=== PATIENT | female | born 1980 | race Hispanic/Latino ===

== ENCOUNTER 2018-12-08 17:17 | Inpatient (IN) | payer BC ==
--- OUTSIDE RECORDS SUMMARY | 2018-12-08 17:21 | XMS REPORT ---
:1980 [facility] Address [address] [place] [address] Dr. Robert [address] [place] [id number] Care Team Providers Name Role Phone Unavailable Unavailable Unavailable Problems This patient has no known problems. Allergies, Adverse Reactions, Alerts This patient has no known allergies or adverse reactions. Medications This patient has no known medications.
[2018-12-08] MEDS ORDERED: Ringers Lactate 1,000 ML IV PRN (18:43)
[2018-12-08] MEDS ORDERED: NA CIT/CITRIC AC 30 ML ORAL UDC PO ONE (18:46)
[2018-12-08] MEDS ORDERED: Ringers Lactate 1,000 ML IV SCH (19:00)
[2018-12-08] MEDS ORDERED: METOCLOPRAMIDE 10 MG/2mL INJ IV SCH (19:00)
[2018-12-08] MEDS ORDERED: CEFAZOLIN/SWI 2gm 2 GM/20 ML SYR IVP SCH ×2 (19:00→19:15)
--- NOTE | 2018-12-08 19:03 | P.PN ---
Date of Service: 12/08/18 Pt in prodromal labor, will proceede with .
[2018-12-08 19:21] LABS: RPR Titer ND
[2018-12-08] MEDS ORDERED: CARBOPROST TROME 250 MCG/ML IM ONE (19:21)
[2018-12-08] MEDS ORDERED: METHYLERGONOVINE 0.2MG/ML AMP IM ONE (19:21)
[2018-12-08] MEDS ORDERED: FAMOTIDINE 20 MG/2 ML VIAL IV ONE (19:21)
[2018-12-08 19:25] LABS: Absolute Lymphocytes (CBC) 1.2 K/uL (0.7-4.9); Absolute Monocytes 0.7 K/uL (0.1-1.3); Absolute Neutrophil 6.3 K/uL (1.8-8.0); Basophils % 0.4 % (0-1.3); Eosinophils % 0.7 % (0-4.4); Hematocrit 35.2 % (36.0-45.0); MPV 8.2 fL (7.6-11.3); RBC Red Blood Cell Count 3.71 M/uL (3.86-4.86)
[2018-12-08 19:26] VITALS: BMI 27.3
[2018-12-08 19:33] LABS: Urine Appearance CLEAR; Urine Bilirubin NEGATIVE (NEG); Urine Blood 1+ (NEG); Urine Color YELLOW; Urine Glucose NEGATIVE (NEG); Urine Microscopic Reflex ORDER UMIC; Urine Protein NEGATIVE (NEG); Urine Specific Gravity 1.015 (1.005-1.030); Urine Urobilinogen 0.2 mg/dL (0.2-1.0); Urine pH 6.5 (5.0-7.0)
[2018-12-08] MEDS ORDERED: MORPHINE SULFATE/PF 1 MG/ML (10 ML AMP) ONE (19:37)
[2018-12-08] MEDS ORDERED: OXYTOCIN 10 UNIT/ML ML IV ONE (19:43)
[2018-12-08] MEDS ORDERED: ONDANSETRON 4 MG/2 ML VIAL ONE (19:43)
[2018-12-08 20:11] LABS: Urine Bacteria <20 /HPF (<20)
[2018-12-08 20:12] LABS: Urine Culture Reflex Order NOT NEEDED
[2018-12-08] MEDS ORDERED: MIDAZOLAM HCL 2 MG/2 ML INJ ONE (20:49)
[2018-12-08] MEDS ORDERED: FENTANYL CITR 250 MCG/5 ML ONE (20:58)
[2018-12-08] MEDS ORDERED: METHYLERGONOVINE 0.2MG/ML AMP IM PRN (21:30)
[2018-12-08] MEDS ORDERED: CARBOPROST TROME 250 MCG/ML IM PRN (21:30)
[2018-12-08] MEDS ORDERED: ONDANSETRON 4 MG (ODT) TAB PO PRN (21:30)
[2018-12-08] MEDS ORDERED: METHYLERGONOVINE 0.2 MG TAB PO PRN (21:30)
[2018-12-08] MEDS ORDERED: KETOROLAC 30 MG/ML INJ IV ONE (21:31)
--- NOTE | 2018-12-08 21:34 | P.BOP ---
Preoperative diagnosis: 38+ week , AMA, prior c-sectionX3, labor Postoperative diagnosis: same, viable male infant Primary procedure: Car Rental Manager: Keith Willams Estimated blood loss: 800ml Specimen: placenta Anesthesia: Spinal Complications: None Transferred to: Other ([id number]) Condition: Good
[2018-12-08] MEDS ORDERED: KETOROLAC 30 MG/ML INJ ONE (21:46)
--- NOTE | 2018-12-08 21:54 | PREOPHP ---
Date of Admission: 12/08/2018 History Of Present Illness: Ms. Henderson is a 38-year-old female, 6, para 3-0-2- 3, now at approximately 38+ weeks' gestation. She has been followed by me with complications of adva nced maternal age, prior section x3, mild anemia. She comes in today for her preop, but giv es a history of blood-tinged mucus and more cramping and contractions today. Past Medical History: Please see record. Family History: Please see record. Review of Systems: She reports no recent cough, cold, fever, or chills. No recent nausea or vomiting. She denies any b reast lumps or breast knots. has been active. She denies any urine symptoms or bowel issues. Physical Examination: General: Reveals pleasant female, in no apparent distress. Neck: Supple without adenopathy or thyromegaly. Lungs: Clear. Cardiac: Regular rate and rhythm without murmurs. Breasts: Not examined. Abdomen: Estimated weight of 7 pounds. Pelvic: Cervix 50% effaced, fingertip are less dilated, vertex at a -1 station with lower segment so mewhat bulging. Extremities: No cyanosis, clubbing, or edema. Impression: A 38+ week , advanced maternal age, prior section x3, requested perman ent sterilization, possible prodromal labor. Plan: The patient is scheduled for Wednesday for repeat section, but we have directed her to g o to Labor and Delivery. If regular contractions are noted, we will perform section today. Risks are discussed. She has signed operative permit in my presence. MADI/ZOE Voice ID: [id number]
[2018-12-08] MEDS ORDERED: OXYTOCIN/LR 20 UNITS/1,000 ML BAG IV SCH (22:00)
[2018-12-09] MEDS: Oxycodone HCl/Acetaminophen 1 TAB TAB PO PRN ×6 (00:30→22:30)
[2018-12-09 06:14] LABS: RPR (Rapid Plasma Reagin) NON-REACT (NON-REACT)
[2018-12-09] MEDS ORDERED: IBUPROFEN 400 MG TAB PO PRN (06:18)
--- NOTE | 2018-12-09 06:20 | P.PN ---
Date of Service: 12/09/18 S-No complaints, eager to get up O-Afeb, vs stable, h/h pending, bandage dry, abdomen soft, not distended A-Satisfactory P-Routine care, bailey out, advance diet at noon, ambulate
[2018-12-09 06:55] LABS: Absolute Lymphocytes (CBC) 0.8 K/uL (0.7-4.9); Absolute Monocytes 0.6 K/uL (0.1-1.3); Basophils % 0.5 % (0-1.3); Eosinophils % 0.4 % (0-4.4); Hematocrit 32.6 % (36.0-45.0); Lymphocytes % 8.8 % (15.3-44.8); MPV 7.7 fL (7.6-11.3); Monocytes % 5.9 % (3.3-12.3); RBC Red Blood Cell Count 3.57 M/uL (3.86-4.86)
[2018-12-09] MEDS: IBUPROFEN 200 MG TAB PO PRN ×3 (07:30→20:11)
[2018-12-09] MEDS ORDERED: IBUPROFEN 200 MG TAB PO ONE (07:38)
[2018-12-09] MEDS ORDERED: Tdap (Diph,Pertuss(Acell),Tet Vac) 0.5 ML SYR IMVAC ONE (08:44)
[2018-12-09] MEDS: SIMETHICONE 80 MG TAB PO SCH ×2 (17:16→22:30)
[2018-12-09] MEDS ORDERED: FAMOTIDINE 20 MG/2 ML VIAL IV ONE (18:49)
[2018-12-10] MEDS: IBUPROFEN 200 MG TAB PO PRN ×3 (02:25→17:31)
[2018-12-10] MEDS: Oxycodone HCl/Acetaminophen 1 TAB TAB PO PRN ×4 (07:06→18:33)
--- NOTE | 2018-12-10 07:40 | P.PN ---
Date of Service: 12/10/18 S-No complaints, except gas pains, has passed some gas O-Afeb, vs stable, abdomen less distended, bandage dry A-Satisfactory P-Routine care, ambulate, home am Wednesday
[2018-12-10] MEDS: SIMETHICONE 80 MG TAB PO SCH ×2 (09:01→16:00)
[2018-12-10] MEDS ORDERED: Tdap (Diph,Pertuss(Acell),Tet Vac) 0.5 ML SYR IMVAC ONE (17:30)
[2018-12-11] MEDS: SIMETHICONE 80 MG TAB PO SCH ×2 (00:25→09:00)
[2018-12-11] MEDS: Oxycodone HCl/Acetaminophen 1 TAB TAB PO PRN ×2 (00:25→06:35)
[2018-12-11] MEDS: IBUPROFEN 200 MG TAB PO PRN ×2 (02:31→09:31)
[2018-12-11 09:39] VITALS: BP 100/65; TEMP 97.8
--- NOTE | 2018-12-11 18:00 | DS ---
Date of Discharge: 12/11/2018 Final Hospital Discharge Diagnoses: 1.38+ week . 2.Prodromal labor. 3.Prior section x3. 4.Advanced maternal age. Complications: None. Procedures: Spinal block anesthesia, repeat section, delivery of viable male infant. Hospital Course: The patient is a 38-year-old female, 4, para 3-0-0-3 at 38 + weeks gestation, admitted with contractions and small amount of blood-tinged discharge. She has perez d a history of prior section x3, underwent repeat section, delivered 8 pounds 1 oun ce male infant, 9 and 10, with spinal block anesthesia. Lab work included an admission hemoglo bin and hematocrit of 12.1 and 35.2, dismissal 11.0 and 32.6. She is Rh positive blood type, was dis missed with prescription for Tylenol No. 3 #15 for pain relief, to be seen back in my office in appro ximately 1 week with usual nfyv-C-xtollib activity restrictions. MADI/ZOE Voice ID: [id number] Report ID: [id number]
--- NOTE | 2018-12-12 08:25 | OP ---
Surgeon: Marcelo Morin MD Preoperative Diagnoses: 1.A 38+ week . 2.Prior section x3. 3.Advanced maternal age. 4.Prodromal labor. Procedure: Spinal block anesthesia, repeat section, delivery of viable male . Postoperative Diagnoses: 1.A 38+ week . 2.Prior section x3. 3.Advanced maternal age. 4.Prodromal labor. Description Of Procedure: After satisfactory level of spinal block anesthesia was obtained, the sarath ent was prepped and draped in the usual fashion for abdominal surgery. A Pfannenstiel skin incision was made, carried down to the fascia. The fascia was incised with a combination of sharp and blunt d issection. This was from the underlying rectus muscles. These were divided in the midline , peritoneum entered. Bladder was already retracted downward. A low transverse uterine incision was made. An 8-pound 1-ounce male infant, 9 and 10, was delivered with the assistance of short Pi per forceps. The infant was delivered. The cord was clamped, cut, and the placed in a warmer . Cord blood was obtained. The placenta was spontaneously expelled, was manually removed. The uter us was then exteriorized. The cervix was dilated from above with a ring clamp, which was passed from the operative field. The uterus was closed in 2 layers with running and locking 0 Vicryl suture. S econd layer was used to imbricate the first. The uterus was returned to the peritoneal cavity, which was cleaned of amniotic fluid, debris, and blood clot. The rectus muscles were approximated in the midline with simple sutures of 0 Vicryl. The fascia was closed with running sutures of #1 Vicryl fro m either margin to the middle. The skin closed with subcutaneous sutures of 3-0 Vicryl, subdermal charles ture of 3-0 Vicryl, and subcuticular suture of 4-0 Monocryl. Estimated total blood loss was approxim ately 800 cc. The patient had received 2 g of Ancef for antibiotic prophylaxis. [facility] recovery room in satisfactory condition with Do catheter in place, SCDs in place, and sponge and needle counts correct x2. Assistant Drafter Surgeon: Dr. Willams. Anesthesia: Dr. Werner. MADI/ZOE Voice ID: [id number] Report ID: [id number]
[2018-12-15 04:00] LABS: HBsAG Nonreactive (Nonreactive)
== END 2018-12-11 10:00 | disposition home or self-care (01) | DRG 788 ==
LOC: LABNP 17:17 → 2ND-WC 18:41
PROVIDERS: ADMIT Specialist; ATTEND Specialist
PROC: 10D00Z1 Extraction of Products of Conception, Low, Open Approach (ICD-10-PCS; principal; 2018-12-08 20:00)
DX: O34.211 Maternal care for low transverse scar from previous cesarean delivery (principal); Z3A.38 38 weeks gestation of pregnancy; Z37.0 Single live birth; O99.02 Anemia complicating childbirth; D64.9 Anemia, unspecified
CPT/HCPCS: 36415; 81003; 81015; 85025; 86592; 86900; 86901; 87340; 88307; 90715; J0690; J2210; J2250; J2405; J2590; J2765; J3010